=== PATIENT | female | born 1975 | race Caucasian/White ===

== ENCOUNTER 2017-11-28 09:39 | Day surgery (SDC) | payer MEDICAID ==
[~2017-11-28] VITALS: Ht 167.6 cm; Wt 100.2 kg
[~2017-11-28 09:39] MED LIST: FERR-57 PO; PREN-89 PO
[2017-11-28 09:47] VITALS: BP_SYST 146
[2017-11-28 10:37] LABS: BASOPHILS % (AUTO) 0.2 % (0.0-2.0); EOSINOPHILS # (AUTO) 0.2 K/uL (0.0-0.4); LYMPHOCYTES # (AUTO) 4.3 K/uL (1.0-5.5); MEAN CORPUSCULAR HEMOGLOBIN 29 pg (27-31); MEAN CORPUSCULAR HGB CONC 33 % (32-36); MEAN CORPUSCULAR VOLUME 89 fL (79.0-98.0); MONOCYTES # (AUTO) 0.8 K/uL (0.0-1.0); MONOCYTES % (AUTO) 4.2 % (1.7-9.3); NEUTROPHILS # (AUTO) 13.2 K/uL (1.8-7.7); NEUTROPHILS % (AUTO) 71.6 % (40.0-70.0); PLATELET COUNT (AUTO) 293 K/uL (130-430); RED BLOOD CELL COUNT(AUTO) 2.41 MIL/uL (4.2-6.2); RED CELL DISTRIBUTION WIDTH 13.6 % (9.0-15.0); WHITE BLOOD COUNT (AUTO) 18.5 K/uL (4.8-10.8)
[2017-11-28 10:41] LABS: INR 0.9 (0.8-1.2); PROTHROMBIN TIME 9.3 SECS (9.5-12.5)
[2017-11-28 10:47] LABS: CALCIUM 8.5 mg/dL (8.4-11.0); CREATININE 0.56 mg/dL (0.55-1.30); POTASSIUM 3.5 mmol/L (3.5-5.1)
[2017-11-28 10:49] LABS: HEMATOCRIT 21.4 % (36-48)
[2017-11-28 10:52] LABS: ALBUMIN 3.3 g/dL (3.4-4.8); TOTAL BILIRUBIN 0.1 mg/dL (0.0-1.0)
[2017-11-28 14:19] LABS: BASOPHILS % (AUTO) 0.2 % (0.0-2.0); EOSINOPHILS # (AUTO) 0.2 K/uL (0.0-0.4); MONOCYTES # (AUTO) 0.7 K/uL (0.0-1.0); RED BLOOD CELL COUNT(AUTO) 2.16 MIL/uL (4.2-6.2)
[2017-11-28 14:23] LABS: EOSINOPHILS % (AUTO) 1.1 % (0.0-4.0); LYMPHOCYTES # (AUTO) 4.1 K/uL (1.0-5.5); LYMPHOCYTES % (AUTO) 23.9 % (20.5-51.5); MEAN CORPUSCULAR HEMOGLOBIN 30 pg (27-31); MEAN CORPUSCULAR HGB CONC 33 % (32-36); MEAN CORPUSCULAR VOLUME 89 fL (79.0-98.0); MONOCYTES % (AUTO) 4.2 % (1.7-9.3); NEUTROPHILS % (AUTO) 70.6 % (40.0-70.0); PLATELET COUNT (AUTO) 251 K/uL (130-430); RED CELL DISTRIBUTION WIDTH 13.6 % (9.0-15.0)
[2017-11-28 14:29] LABS: HEMATOCRIT 19.1 % (36-48); HEMOGLOBIN 6.4 g/dL (12.0-16.0)
[2017-11-28] MEDS ORDERED: DEXAMETHASONE SOD PHOSPHATE 4 MG/ML VIAL IVP ONE (17:03)
[2017-11-28] MEDS ORDERED: CEFAZOLIN 2 GM IVPB PREMIX 50 ML IV ONE (17:03)
[2017-11-28] MEDS ORDERED: METOCLOPRAMIDE HCL 10 MG/2 ML VIAL IVP ONE (17:03)
[2017-11-28] MEDS ORDERED: MIDAZOLAM HCL 5 MG/ML VIAL (VERSED) IV ONE (17:03)
[2017-11-28] MEDS ORDERED: NS 1000 ML BAG IV ONE (17:03)
[2017-11-28] MEDS ORDERED: WATER FOR IRRIGATION,STERILE 1,000 ML IRRIG.SOLN IR ONE (17:03)
[2017-11-28] MEDS ORDERED: LR 1,000 ML IV ONE (17:06)
[2017-11-28] MEDS ORDERED: DIPHENHYDRAMINE INJ 50 MG/ML VIAL IVP PRN (17:15)
[2017-11-28] MEDS ORDERED: NALOXONE HCL 0.4 MG/ML AMP (NARCAN) IVP PRN (17:15)
[2017-11-28] MEDS ORDERED: NALBUPHINE HCL 10 MG/ML AMP IVP PRN (17:15)
[2017-11-28] MEDS ORDERED: fentaNYL CITRATE/PF 100 MCG/2 ML AMP IVP PRN (17:15)
[2017-11-28] MEDS ORDERED: KETOROLAC TROMETHAMINE 30 MG VIAL IM PRN (17:15)
[2017-11-28] MEDS ORDERED: ONDANSETRON HCL 4 MG/2 ML VIAL IVP PRN ×2 (17:15)
[2017-11-28] MEDS ORDERED: ePHEDrine sulfate 50 MG/ML VIAL IVP PRN (17:15)
[2017-11-28 18:17] VITALS: BP_SYST 94
[2017-11-28 20:11] VITALS: BP_SYST 106
[2017-11-28] MEDS ORDERED: DOXY-4 PO ×3 (21:06→21:13)
[2017-11-28] MEDS ORDERED: [UNRECOGNIZED DRUG - CODE] PO (21:15)
[2017-11-28 21:36] LABS: BASOPHILS % (AUTO) 0.1 % (0.0-2.0); EOSINOPHILS % (AUTO) 0.1 % (0.0-4.0); HEMATOCRIT 25.3 % (36-48); HEMOGLOBIN 8.5 g/dL (12.0-16.0); LYMPHOCYTES # (AUTO) 1.1 K/uL (1.0-5.5); LYMPHOCYTES % (AUTO) 6.7 % (20.5-51.5); MEAN CORPUSCULAR HEMOGLOBIN 30 pg (27-31); MEAN CORPUSCULAR HGB CONC 34 % (32-36); MEAN CORPUSCULAR VOLUME 89 fL (79.0-98.0); MONOCYTES # (AUTO) 0.1 K/uL (0.0-1.0); MONOCYTES % (AUTO) 0.7 % (1.7-9.3); NEUTROPHILS # (AUTO) 15.9 K/uL (1.8-7.7); NEUTROPHILS % (AUTO) 92.4 % (40.0-70.0); PLATELET COUNT (AUTO) 249 K/uL (130-430); RED BLOOD CELL COUNT(AUTO) 2.85 MIL/uL (4.2-6.2); RED CELL DISTRIBUTION WIDTH 13.4 % (9.0-15.0); WHITE BLOOD COUNT (AUTO) 17.1 K/uL (4.8-10.8)
== END 2017-11-28 22:35 | disposition home or self-care (01) ==
LOC: SED 09:39 → SMU 16:11 → SDS 16:17
PROVIDERS: ATTEND Specialist
DX: O03.4 Incomplete spontaneous abortion without complication (principal); E66.01 Morbid (severe) obesity due to excess calories; Z90.49 Acquired absence of other specified parts of digestive tract; D64.9 Anemia, unspecified; N81.10 Cystocele, unspecified
CPT/HCPCS: 36415; 59812; 71045; 76830; 76857; 80053; 84484; 85025; 85610; 85730; 86886; 86900; 86901; 86920; 88305; 93005; J0690; J1100; J2250; J2765; J7030; P9021

== ENCOUNTER 2021-04-07 22:31 | Emergency (ER) | payer MEDICAID ==
[~2021-04-07] VITALS: Ht 167.6 cm; Wt 104.8 kg
[~2021-04-07 22:31] MED LIST changes: +DOXY100C PO; -PREN-89 PO; +[UNRECOGNIZED DRUG - CODE] PO
[2021-04-07 22:40] VITALS: BP_SYST 153
[2021-04-07 23:38] LABS: BASOPHILS # (AUTO) 0.1 K/uL (0.0-0.2); BASOPHILS % (AUTO) 0.5 % (0.0-2.0); EOSINOPHILS # (AUTO) 0.1 K/uL (0.0-0.4); EOSINOPHILS % (AUTO) 0.3 % (0.0-4.0); HEMOGLOBIN 14.4 g/dL (12.0-16.0); LYMPHOCYTES # (AUTO) 1.7 K/uL (1.0-5.5); LYMPHOCYTES % (AUTO) 10.1 % (20.5-51.5); MEAN CORPUSCULAR HEMOGLOBIN 29 pg (27-31); MEAN CORPUSCULAR HGB CONC 34 % (32-36); MEAN CORPUSCULAR VOLUME 87 fL (79.0-98.0); MONOCYTES % (AUTO) 6.2 % (1.7-9.3); NEUTROPHILS # (AUTO) 13.5 K/uL (1.8-7.7); NEUTROPHILS % (AUTO) 82.9 % (40.0-70.0); PLATELET COUNT (AUTO) 242 K/uL (130-430); RED BLOOD CELL COUNT(AUTO) 4.95 MIL/uL (4.2-6.2); RED CELL DISTRIBUTION WIDTH 14.3 % (9.0-15.0); WHITE BLOOD COUNT (AUTO) 16.3 K/uL (4.8-10.8)
[2021-04-07 23:47] LABS: CREATININE 1.01 mg/dL (0.55-1.30); POTASSIUM 3.7 mmol/L (3.5-5.1)
[2021-04-07 23:53] LABS: ALBUMIN 3.7 g/dL (3.4-4.8); TOTAL BILIRUBIN 0.4 mg/dL (0.0-1.0)
[2021-04-08] MEDS ORDERED: IPRATROPIUM/ALBUTEROL SULFATE 3 ML AMPUL.NEB (DUONEB) INH ONE (01:15)
[2021-04-08] MEDS ORDERED: DEXAMETHASONE SOD PHOSPHATE 10 MG/ML VIAL IVP ONE (01:15)
[2021-04-08] MEDS ORDERED: MAGNESIUM SULFATE 1 GM/2 ML VIAL IVP ONE (01:15)
[2021-04-08] MEDS ORDERED: PHEDM120 PO (02:36)
[2021-04-08] MEDS ORDERED: PRED20TA PO (02:36)
[2021-04-08] MEDS ORDERED: ALBMDI INH (02:36)
[2021-04-08] MEDS ORDERED: IPRATROPIUM/ALBUTEROL SULFATE 3 ML AMPUL.NEB (DUONEB) ONE (02:56)
[2021-04-08 03:20] VITALS: BP_SYST 148
== END 2021-04-08 03:20 | disposition home or self-care (01) ==
LOC: SED 22:31
DX: J45.909 Unspecified asthma, uncomplicated (principal); Z79.899 Other long term (current) drug therapy
CPT/HCPCS: 36415; 71045; 80053; 83880; 85025; 93005; 96374; 96375; 99285; J1100; J3475; 94640

== ENCOUNTER 2021-09-13 12:46 | Emergency (ER) | payer MEDICAID ==
[~2021-09-13] VITALS: Ht 167.6 cm; Wt 98.9 kg
[~2021-09-13 12:46] MED LIST changes: +ALBMDI INH; +PHEDM120 PO; +PRED20TA PO
[2021-09-13 13:00] VITALS: BP_SYST 117
--- NOTE | 2021-09-13 13:10 | NUR ---
Patient to ER bed 8 to gown for evaluation. Side rails up. Report given to MIKALA ADAMS.
--- NOTE | 2021-09-13 13:12 | NUR ---
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 SHE STATES SHE'S HERE FOR A SECOND OPINION AND TO VERIFY THAT IT IS NOT GROWING. PT DENIES ANY BLEEDING OR PAIN. DENIES DYSURIA. NO N/V/D. RESP EVEN AND UNLABORED, ON RA @99%
--- NOTE | 2021-09-13 13:15 | NUR ---
ER at bedside examining patient.
[2021-09-13 13:16] LABS: BASOPHILS # (AUTO) 0.1 K/uL (0.0-0.2); BASOPHILS % (AUTO) 0.9 % (0.0-2.0); EOSINOPHILS # (AUTO) 0.2 K/uL (0.0-0.4); EOSINOPHILS % (AUTO) 1.4 % (0.0-4.0); HEMATOCRIT 42.8 % (36-48); HEMOGLOBIN 14.4 g/dL (12.0-16.0); LYMPHOCYTES # (AUTO) 3.8 K/uL (1.0-5.5); LYMPHOCYTES % (AUTO) 30.7 % (20.5-51.5); MEAN CORPUSCULAR HEMOGLOBIN 28 pg (27-31); MEAN CORPUSCULAR HGB CONC 34 % (32-36); MEAN CORPUSCULAR VOLUME 85 fL (79.0-98.0); MONOCYTES # (AUTO) 0.5 K/uL (0.0-1.0); MONOCYTES % (AUTO) 3.8 % (1.7-9.3); NEUTROPHILS # (AUTO) 7.7 K/uL (1.8-7.7); NEUTROPHILS % (AUTO) 63.2 % (40.0-70.0); PLATELET COUNT (AUTO) 285 K/uL (130-430); RED BLOOD CELL COUNT(AUTO) 5.05 MIL/uL (4.2-6.2); RED CELL DISTRIBUTION WIDTH 14.2 % (9.0-15.0); WHITE BLOOD COUNT (AUTO) 12.3 K/uL (4.8-10.8)
--- NOTE | 2021-09-13 13:20 | NUR ---
PT IN CT SCAN AT THIS TIME.
[2021-09-13 13:27] LABS: CALCIUM 8.8 mg/dL (8.4-11.0); CREATININE 0.79 mg/dL (0.55-1.30); POTASSIUM 3.9 mmol/L (3.5-5.1)
[2021-09-13 13:32] LABS: INR 0.9 (0.8-1.2); PROTHROMBIN TIME 9.8 SECS (9.5-12.5)
[2021-09-13 13:33] LABS: ALBUMIN 3.6 g/dL (3.4-4.8); TOTAL BILIRUBIN 0.2 mg/dL (0.0-1.0)
--- NOTE | 2021-09-13 13:52 | NUR ---
NO ACUTE CHANGES IN CONDITION, PT IN NAD.
--- NOTE | 2021-09-13 15:53 | NUR ---
Patient given written and verbal discharge instructions and verbalizes understanding. ER MD discussed with patient the results and treatment provided. Patient in stable condition. ID arm band removed. Patient educated on pain management and to follow up with PMD. Pain Scale . Opportunity for questions provided and answered. Medication side effect fact sheet provided.
[2021-09-13 19:05] VITALS: BP_SYST 122
== END 2021-09-13 19:05 | disposition home or self-care (01) ==
LOC: SED 12:46
DX: N93.9 Abnormal uterine and vaginal bleeding, unspecified (principal); R10.2 Pelvic and perineal pain
CPT/HCPCS: 36415; 76376; 80053; 81025; 82150; 83605; 83690; 84703; 85025; 85610-TC; 85730-TC; 86140; 99284

== ENCOUNTER 2022-12-03 10:41 | Emergency (ER) | payer MEDICAID ==
[~2022-12-03] VITALS: Ht 167.6 cm; Wt 91.6 kg
[2022-12-03 10:41] VITALS: BP_SYST 122
--- NOTE | 2022-12-03 10:50 | NUR ---
RECEIVED PT FROM BRY[facility] ISSA. PT BIB FOR C/O H/A, COUGH, EAR ACHE X3 DAY. PT IS AAOX4, ON R/A. NO COUGH OR SOB NOTED. DENIES N/V/D/C. DISTAL PULSES NORMAL, SKIN CDI, NO EDEMA. DENIES PAIN. SIDERAILS UP X2.
--- NOTE | 2022-12-03 10:53 | NUR ---
DR. BHATTI AT BEDSIDE TO ASSESS PT.
[2022-12-03] MEDS ORDERED: cefTRIAXone 1 GM in LIDOCAINE 1%, 20 ML MDV 2.1 ML IM ONE (11:15)
[2022-12-03] MEDS ORDERED: DEXAMETHASONE SOD PHOSPHATE 4 MG/ML VIAL IM ONE (11:15)
[2022-12-03] MEDS ORDERED: BENZ100C92 PO (11:20)
[2022-12-03] MEDS ORDERED: AUG875 PO (11:20)
[2022-12-03] MEDS ORDERED: DEC4 PO (11:20)
--- NOTE | 2022-12-03 11:26 | NUR ---
CXR COMPLETED, HCG TEST NEGATIVE.
--- NOTE | 2022-12-03 11:30 | NUR ---
DECADRON IM GIVEN TO RIGHT DELTOID, ROCEPHIN IM GIVEN TO R LATERAL BUTTOCK.
--- NOTE | 2022-12-03 11:36 | NUR ---
Patient given written and verbal discharge instructions and verbalizes understanding. ER MD discussed with patient the results and treatment provided. Patient in stable condition. ID arm band removed. IV catheter removed intact and dressing applied, no active bleeding. Rx of AUGMENTIN, BENZONATE,DEXAMETHASONE given. Patient educated on pain management and to follow up with PMD. Pain Scale 2/10. Opportunity for questions provided and answered. Medication side effect fact sheet provided.
[2022-12-03 12:02] VITALS: BP_SYST 123
== END 2022-12-03 11:36 | disposition home or self-care (01) ==
LOC: SED 10:41
DX: J40 Bronchitis, not specified as acute or chronic (principal); R05.9 Cough, unspecified; R06.02 Shortness of breath; R51.9 Headache, unspecified; F17.210 Nicotine dependence, cigarettes, uncomplicated; Z79.899 Other long term (current) drug therapy
CPT/HCPCS: 99284; 96374; 71045; 96372; J0696; J1100; J2001

== ENCOUNTER 2023-04-27 11:53 | Emergency (ER) | payer MEDICAID ==
[~2023-04-27] VITALS: Ht 165.1 cm; Wt 86.2 kg
[~2023-04-27 11:53] MED LIST changes: +AUG875 PO; +BENZ100C92 PO; +DEC4 PO
[2023-04-27] MEDS ORDERED: ONDANSETRON 4 MG ODT TAB PO ONE (12:30)
[2023-04-27 12:41] VITALS: BP_SYST 117; PULSE 85; RESP 20; TEMP 98.3; O2SAT 98
[2023-04-27 12:50] LABS: BASOPHILS # (AUTO) 0.1 K/uL (0.0-0.2); BASOPHILS % (AUTO) 0.6 % (0.0-2.0); EOSINOPHILS # (AUTO) 0.1 K/uL (0.0-0.4); EOSINOPHILS % (AUTO) 0.8 % (0.0-4.0); HEMATOCRIT 48.5 % (36-48); HEMOGLOBIN 15.9 g/dL (12.0-16.0); LYMPHOCYTES % (AUTO) 24.9 % (20.5-51.5); MEAN CORPUSCULAR HEMOGLOBIN 30 pg (27-31); MEAN CORPUSCULAR HGB CONC 33 % (32-36); MEAN CORPUSCULAR VOLUME 90 fL (79.0-98.0); MONOCYTES # (AUTO) 0.8 K/uL (0.0-1.0); MONOCYTES % (AUTO) 4.8 % (1.7-9.3); NEUTROPHILS # (AUTO) 11.1 K/uL (1.8-7.7); NEUTROPHILS % (AUTO) 68.9 % (40.0-70.0); PLATELET COUNT (AUTO) 237 K/uL (130-430); RED BLOOD CELL COUNT(AUTO) 5.38 MIL/uL (4.2-6.2); RED CELL DISTRIBUTION WIDTH 13.8 % (9.0-15.0); WHITE BLOOD COUNT (AUTO) 16.1 K/uL (4.8-10.8)
[2023-04-27 13:02] LABS: ANION GAP 9 (5-15); CALCIUM 8.8 mg/dL (8.4-11.0); CHLORIDE 107 mmol/L (98-107); CREATININE 0.83 mg/dL (0.55-1.30); GFR AFRICAN AMERICAN 96 mL/min (>90); GLUCOSE 101 mg/dL (74-106); UREA NITROGEN, BLOOD 10 mg/dL (8-21)
[2023-04-27 13:05] LABS: ACETONE, SERUM NEGATIVE (NEGATIVE)
[2023-04-27 13:09] LABS: ALANINE AMINOTRANSFERASE 10 U/L (12-78); AMYLASE 47 U/L (0-100); ASPARTATE AMINOTRANSFERASE 13 U/L (10-37); LIPASE 110 U/L (73-393); TOTAL BILIRUBIN 0.4 mg/dL (0.0-1.0)
[2023-04-27 14:06] LABS: BILIRUBIN,URINE NEGATIVE (NEGATIVE); BLOOD, URINE NEGATIVE (NEGATIVE); CLARITY/URINE CLEAR (CLEAR); COLOR,URINE YELLOW (YELLOW); GLUCOSE,URINE NEGATIVE (NEGATIVE); KETONES,URINE NEGATIVE (NEGATIVE); LEUKOCYTE ESTERASE ,URINE NEGATIVE (NEGATIVE); NITRITE, URINE NEGATIVE (NEGATIVE); PROTEIN URINE NEGATIVE (NEGATIVE); UROBILINOGEN,URINE 0.2 (0.2-1.0)
[2023-04-27] MEDS ORDERED: ONDA-8 TL (14:12)
[2023-04-27 14:27] VITALS: BP_SYST 117; PULSE 85; RESP 20; TEMP 98.3; O2SAT 98
== END 2023-04-27 14:26 | disposition home or self-care (01) ==
LOC: SED 11:53
DX: R53.1 Weakness (principal); R11.0 Nausea; T37.3X5A Adverse effect of other antiprotozoal drugs, initial encounter; R42 Dizziness and giddiness; J45.909 Unspecified asthma, uncomplicated; Z79.899 Other long term (current) drug therapy; Y92.89 Other specified places as the place of occurrence of the external cause
CPT/HCPCS: 99283; 80053; 82009; 82150; 84703; 83690; 85025; 84484; 36415; 81025; 83605; 81003; Q0162

== ENCOUNTER 2023-06-17 15:36 | Emergency (ER) | payer MEDICAID ==
[~2023-06-17] VITALS: Ht 170.2 cm; Wt 87.5 kg
[~2023-06-17 15:36] MED LIST changes: +ONDA-8 TL
[2023-06-17 15:40] VITALS: BP_SYST 115; PULSE 80; RESP 18; TEMP 97.5; O2SAT 97
[2023-06-17] MEDS ORDERED: AUG875 PO (17:03)
== END 2023-06-17 17:05 | disposition home or self-care (01) ==
LOC: SED 15:36
DX: J02.9 Acute pharyngitis, unspecified (principal); J45.909 Unspecified asthma, uncomplicated; Z79.899 Other long term (current) drug therapy
CPT/HCPCS: 99283